=== PATIENT | male | born 1955 | race African-American/Black ===

== ENCOUNTER 2020-06-28 16:16 | Outpatient (REF) | payer OTHER, SELFPAY ==
[2020-06-28 16:20] LABS: MANUAL DIFF FLAG NO
[2020-06-28 16:22] LABS: Basophils Percent Auto 0.8 % (0-2); Eosinophils Absolute Auto 0.1 X10*3/uL (0.0-0.4); Eosinophils Percent Auto 1.5 % (0-4); Hematocrit 30.9 % (42-52); Hemoglobin 9.3 g/dl (14.0-18.0); Imm Gran Abs Auto 0.01 X10*3/uL (0.00-0.03); Imm Gran Pct Auto 0.2 % (0.0-0.4); Lymphocytes Absolute Auto 1.8 X10*3/uL (1.2-4.9); Lymphocytes Percent Auto 33.5 % (20-40); Mean Corpuscular HGB Conc 30.1 g/dl (31.0-36.0); Mean Corpuscular Hemoglobin 29.6 pg (27.0-33.0); Mean Corpuscular Volume 98.4 fL (80-98); Mean Platelet Volume 10.4 fL (9.4-12.4); Monocytes Absolute Auto 0.4 X10*3/uL (0.1-1.2); Monocytes Percent Auto 7.2 % (2-11); Neutrophils Percent Auto 56.8 % (45-73); Platelet Count 260 X10*3/uL (160-400); Red Blood Count 3.14 X10*6/uL (4.60-5.80); Red Cell Distribution Width 13.8 % (11.0-16.0); White Blood Count 5.3 X10*3/uL (4.8-10.8)
[2020-06-28 16:45] LABS: Alanine Aminotransferase 9 U/L (0-40); Albumin Level 3.6 g/dL (3.5-5.0); Alkaline Phosphatase 120 U/L (39-117); Anion Gap 13 (12-20); Aspartate Amino Transferase 11 U/L (5-37); Bilirubin Total 0.2 mg/dL (0.0-1.0); Blood Urea Nitrogen 26 mg/dL (9-16); Carbon Dioxide 22 mmol/L (22-29); Chloride 111 mmol/L (96-108); Estimated Glomerular Filt Rate 41; Glucose Random 92 mg/dL (60-115); Potassium 4.7 mmol/l (3.3-5.1); Sodium 141 mmol/L (135-145); Total Protein 6.3 g/dL (6.5-8.0)
== END 2020-06-28 16:17 | disposition home or self-care (01) ==
LOC: HO.LNP 16:16
PROVIDERS: Visit Provider Internal Medicine
DX: I10 Essential (primary) hypertension (principal)
CPT/HCPCS: 80053; 85025

== ENCOUNTER → 2020-07-11 11:44 | Outpatient (BNVA) | payer OTHER, SELFPAY | PROVIDERS: PCP Physician Assistant; Referring Provider Physician Assistant; Visit Provider Internal Medicine | DX: A49.1 Streptococcal infection, unspecified site (principal); R78.81 Bacteremia; E11.42 Type 2 diabetes mellitus with diabetic polyneuropathy; Z79.4 Long term (current) use of insulin | CPT/HCPCS: Q3014 ==

== ENCOUNTER 2020-07-12 12:30 | Outpatient (REF) | payer OTHER, SELFPAY ==
[2020-07-12 12:34] LABS: MANUAL DIFF FLAG NO
[2020-07-12 12:43] LABS: Basophils Percent Auto 0.6 % (0-2); Eosinophils Absolute Auto 0.1 X10*3/uL (0.0-0.4); Eosinophils Percent Auto 1.3 % (0-4); Hematocrit 31.1 % (42-52); Hemoglobin 9.6 g/dl (14.0-18.0); Imm Gran Abs Auto 0.02 X10*3/uL (0.00-0.03); Imm Gran Pct Auto 0.3 % (0.0-0.4); Lymphocytes Absolute Auto 1.5 X10*3/uL (1.2-4.9); Lymphocytes Percent Auto 22.1 % (20-40); Mean Corpuscular HGB Conc 30.9 g/dl (31.0-36.0); Mean Corpuscular Volume 97.2 fL (80-98); Monocytes Absolute Auto 0.5 X10*3/uL (0.1-1.2); Monocytes Percent Auto 7.3 % (2-11); Neutrophils Absolute Auto 4.6 X10*3/uL (2.0-8.3); Neutrophils Percent Auto 68.4 % (45-73); Platelet Count 343 X10*3/uL (160-400); Red Cell Distribution Width 14.2 % (11.0-16.0); White Blood Count 6.7 X10*3/uL (4.8-10.8)
[2020-07-12 13:04] LABS: Alanine Aminotransferase 12 U/L (0-40); Albumin Level 3.6 g/dL (3.5-5.0); Alkaline Phosphatase 129 U/L (39-117); Anion Gap 13 (12-20); Aspartate Amino Transferase 11 U/L (5-37); Bilirubin Total 0.3 mg/dL (0.0-1.0); Blood Urea Nitrogen 22 mg/dL (9-16); Calcium 8.2 mg/dL (8.4-10.2); Carbon Dioxide 22 mmol/L (22-29); Chloride 110 mmol/L (96-108); Estimated Glomerular Filt Rate 43; Glucose Random 108 mg/dL (60-115); Potassium 4.6 mmol/l (3.3-5.1); Sodium 140 mmol/L (135-145); Total Protein 6.5 g/dL (6.5-8.0)
== END 2020-07-12 12:31 | disposition home or self-care (01) ==
LOC: HO.LNP 12:30
PROVIDERS: Visit Provider Internal Medicine
DX: I10 Essential (primary) hypertension (principal)
CPT/HCPCS: 80053; 85025

== ENCOUNTER 2023-04-21 09:35 | Outpatient (AMB) | payer OTHER, SELFPAY ==
--- NOTE | 2023-04-21 09:38 | A.OFFPC_ITS ---
Vital Signs 04/21/23 09:40 Height 5 ft 6 in Weight 187 lb 4 oz BMI 30.2 BP 142/80 H Blood Pressure Location Lt brachial Position Sitting Respiration 17 Pulse 84 Pulse Source Pulse Oximeter Pulse Oximetry (%) 98 Oxygen Delivery Method Room Air Intake Visit Reasons: Physical exam Intake Note: Patient is here today for a physical. Pt requesting the [facility] disabled parking placard/Plate form. Quality Assurance Monitor Chassis Required: No Accompanied by: Spouse Allergies No Known Allergies [No Known Allergies*] Allergy (Verified 04/21/23 09:43) Medication List - Last Reconciled 04/21/23 by MARCIN Marinelli acetaminophen (Tylenol) 325 mg PO QID 30 days alprazolam 0.25 mg PO DAILY 10 days aspirin 81 mg PO DAILY atorvastatin 80 mg PO DAILY carvedilol 25 mg PO BID clonidine 1 patch topical QWEEK clopidogrel 75 mg PO DAILY cyanocobalamin (vitamin B-12) 1,000 mcg PO DAILY 90 days docusate sodium (Colace) 100 mg PO DAILY PRN insulin aspart U-100 (Novolog U-100 Insulin aspart) 12 units (0.12 mL) subcut BID 30 days insulin glargine (Lantus Solostar U-100 Insulin) 20 units (0.2 mL) subcut DAILY 30 days isosorbide mononitrate ER 60 mg PO BID nicardipine 40 mg (2 x 20 mg) PO TID omeprazole 40 mg PO DAILY pen needle, diabetic (BD Ultra-Fine Sharita Pen Needle) As directed polyethylene glycol 3350 grams PO sennosides (Senna Lax) 8.6 mg PO DAILY 30 days sitagliptin phosphate (Januvia) 50 mg PO DAILY trazodone 25 mg (1/2 x 50 mg) PO BEDTIME Tobacco use date assessed: 04/21/23 Fall risk assessment: No Falls in past year Last assessed Fall Risk: 04/21/23 Dental Screening Dental Screen Date: 04/21/23 Did you have a dental visit in the last 12 months?: Yes Did you have a dental problem in the last 6 months where you did not have access to dental care?: No Was dental information given to patient?: Yes HPI HPI Comments History of Present Illness Details 67-year-old male past medical history si gnificant for hypertension, type 2 diabetes mellitus, PVD, JONNA, GERD, insomnia, Bilateral feet all toes amputated. Patient presents today for physical exam. Patient Denies CP,sob,palpitations and syncope. Patient requesting [facility] handicap placard form completed, patient does not drive due to all toes of bilateral feet amputated and unable to walk long distances due to this. Patient ambulates with a cane/walker and occasionally requires using a wheelchair. Form completed office today to be scanned into patients chart. Eye exam: Recommended annually. Patient Colonoscopy: Referral entered to Gastroenterology. Tdap given in 2019, flu shot Labs ordered [facility] Medical History (Updated 04/21/23 @ 11:34 by MARCIN Marinelli) Amputation of one or more toes Social History Housing: House Alcohol intake: current Alcohol intake frequency: holidays/special occasions only Patient Tobacco Use Status: Current someday Tobacco user Tobacco use type: Cigar e-Cigarette/Vaping Use: Never Used Second Hand Smoke Exposure: No service: Yes ([employer]) Current occupational status: retired Cognitive needs: No Hearing needs: No Vision needs: No Questionnaire PHQ-9 Over the last 2 weeks, how often have you been bothered by any of the following problems? 1. Little interest or pleasure in doing things: not at all 2. Feeling down, depressed, or hopeless: not at all 3. Trouble falling or staying asleep, or sleeping too much: not at all 4. Feeling tired or having little energy: not at all 5. Poor appetite or overeating: not at all 6. Feeling bad about yourself - or that you are a failure or have let yourself or your family down: not at all 7. Trouble concentrating on things, such as reading the newspaper or watching television: not at all 8. Moving or speaking so slowly that other people could have noticed. Or the opposite - being so fidgety or restless that you have been moving around a lot more than usual: not at all 9. Thoughts that you would be better off or of hurting yourself in some way: not at all Total score: 0 Depression Screening Interpretation: Negative Depression Screening Done: Yes 51678 - PHQ-9 Billing: Yes Source: Developed by Drs. Zak No, Meggan Graff, Micha Umanzor and colleagues, with an educational dedra from [employer]. Thrive Questionnaire Date Thrive assessed: 04/21/23 I am a: Patient What is your living situation today?: I have a steady place to live Within the past 12 months, did the food you bought not last and you didn't have the money to get more?: Never true Within the past 12 months, did you worry whether your food would run out before you got money to buy more?: Never true Do you have trouble paying for medicines?: No Do you have trouble getting transportation to medical appointments?: No Do you have trouble paying your heating and electricity bill?: No Do you have trouble taking care of your child, family member or friend?: No Do you have trouble with day-to-day activities such as bathing, preparing meals, shopping, managing finances, etc.?: No Are you currently unemployed and looking for a job?: No Are you interested in more education?: No Please select the resources that you would like help with: None Currently or been in a relationship where the following occur: no concerns reported JONNA-7 AMB Questionnaire JONNA-7 Date JONNA - 7 assessed: 04/21/23 Feeling nervous, anxious, or on edge: 0 = Not at all Not being able to stop or control worryin = Not at all Worrying too much about different things: 0 = Not at all Trouble relaxin = Not at all Being so restless that it is hard to sit still: 0 = Not at all Becoming easily annoyed or irritable: 0 = Not at all Feeling afraid as if something awful might happen: 0 = Not at all Total JONNA-7 score (0-4 normal; 5-9 mild; 10-14 moderate; 15-21 severe): 0 Source: Developed by Drs. Zak No, Meggan Graff, Micha Umanzor and colleagues, with an educational dedra from [employer]. JONNA-7 Assessment Billing JONNA-7 Assessment Tool: JONNA-7 Assessment 54611 Review of Systems Const Denies chills, Denies fatigue, Denies fever(s) and Denies poor appetite Eyes Denies no additional complaints ENT Reports Normal hearing present Card Denies chest pain, Denies syncope, Denies rapid heart rate and Denies dyspnea Resp Denies cough and Denies dyspnea GI Denies change in stool character, Denies constipation, Denies diarrhea, Denies nausea and Denies vomiting Denies dysuria, Denies urinary frequency and Denies urinary urgency Neuro Reports Normal hearing present, Denies confusion and Denies syncope Psych Denies confusion Endo Denies fatigue Physical exam (Primary Care) Vital Signs: Last Vital Signs Pulse 84 04/21/23 09:40 Resp 17 04/21/23 09:40 BP 142/80 H 04/21/23 09:40 Pulse Ox 98 04/21/23 09:40 Oxygen Delivery Method Room Air 04/21/23 09:40 BMI result Body Mass Index 30.2 Tobacco/Smoking Status: Tobacco use Status Tobacco use date assessed 04/21/23 04/21/23 09:47 Patient Tobacco Use Status Current someday Tobacco 04/21/23 09:47 Tobacco use type Cigar 04/21/23 09:47 e-Cigarette/Vaping Use Never Used 04/21/23 09:47 PHQ-9: PHQ-9 Score PHQ-9: Total score 0 04/21/23 11:37 Depression Screening Interpretation: Negative Thrive Assessment: Date of Thrive Assessment Date Thrive assessed 04/21/23 04/21/23 09:47 Currently or been in a relationship where the following occur: no concerns reported Const General: No confusion Orientation/consciousness: No confusion HENMT Head: Yes normocephalic and Yes atraumatic Ears: external ears normal and TM's normal bilaterally General nose exam: Normal external nose present and Normal nasal mucous membranes and turbinates present Face and sinus: Yes normal facial exam and Yes sinuses nontender Mouth: moist mucous membranes Throat: Yes tonsils normal Eyes Conjunctivae: conjunctivae normal Sclerae: sclerae normal Pupils: Equal, round and reactive pupils present and Pupils normal by confrontation EOM: EOMs intact bilaterally Direct Ophthalmoscopy: normal light reflex Neck Neck: Yes no lymphadenopathy and Yes supple Thyroid: Thyroid normal Chest Chest palpation & inspection: normal inspection of the chest Resp Effort & Inspection: normal respiratory effort Auscultation: clear to auscultation bilaterally, no crackles, no rhonchi and no wheezes Cardio Rate: regular rate Rhythm: regular rhythm Peripheral pulses: radial pulses present and dorsalis pedis present GI Inspection: Yes normal to inspection Palpation (GI): Soft to palpation, nontender and No hepatosplenomegaly present Auscultation: normoactive bowel sounds Skin General skin exam: no rashes or lesions noted Neuro General: No confusion Cranial nerves: Yes Equal, round and reactive pupils present and Yes Normal hearing present Cognition (Neuro): normal cognition Gait exam (Neuro): Normal gait present Motor exam (neuro): 5/5 motor strength present throughout Deep tendon reflexes (DTR's): Right brachioradialis reflex intensity grade: 2+, Left brachioradialis reflex intensity grade: 2+, Right patellar reflex intensity grade: 2+ and Left patellar reflex intensity grade: 2+ Extrem General: No edema Office Procedures Flu Questionnaire Does the patient have a severe egg allergy?: No Does the patient have severe life threatening allergies?: No Does the patient have a fever or illness today?: No Has the patient ever had Guillain-[place] Syndrome?: No Has the patient ever had any past reaction to a flu shot?: No Results AMB Hemoglobin A1c AMB Hemoglobin A1c 7.1 % Last Edit by GARO Aponte on 04/21/23 10:07 Immunizations flu vacc [id number] 6mos up(PF) 60 mcg(15 mcgx4)/0.5 mL IM syringe Performing Provider: MARCIN Marinelli [facility] Administered by: GARO Aponte on 04/21/23 10:07 Dose Route Admin Location Dispensed Lot Number Expiration Date NDC Gin Clerk 0.5 mL IM Right Deltoid 0.5 mL [id number] 12/27/23 [id number] [place] VIS Given Date VIS Provided VIS Publication Date 04/21/23 Single Vaccine 21 Eligibility Eligibility Date Funding Source Not [facility] Eligible 04/21/23 Private Results Reviewed Results Reviewed: Laboratory Last Values Hgb A1c (Clinic) 7.1 % (4.0-6.0) H 04/21/23 09:48 Assessment and Plan Assessment & Plan (1) Physical exam, annual: Code(s): Z00.00 - Encounter for general adult medical examination without abnormal findings Plan: Follow-up in 1 year for annual exam. (2) DMII (diabetes mellitus, type 2): Code(s): E11.9 - Type 2 diabetes mellitus without complications Qualifiers: Diabetes mellitus complication detail: with polyneuropathy Diabetes mellitus complication status: with neurologic complications Diabetes mellitus computer terminal operator insulin use: with custodial use Qualified Code(s): E11.42 - Type 2 diabetes mellitus with diabetic polyneuropathy; Z79.4 - detention (current) use of insulin Plan: Continue on NovoLog, Lantus and Januvia. Hemoglobin A1c 7.0% Patient educated to decrease the amount of carbohydrate intake such as pasta, bread, rice and potatoes are all sugar in addition to the sweet stuff. Remember that fruits are good but they also have sugar.Hemoglobin A1c goal of less than 7.0%. (3) HTN (hypertension): Code(s): I10 - Essential (primary) hypertension Qualifiers: Hypertension type: essential hypertension Qualified Code(s): I10 - Essential (primary) hypertension Plan: Blood pressure elevated at 142/80 Continue on current medications. Blood pressure goal less than 140/90 follow low-salt diet. (4) GERD (gastroesophageal reflux disease): Code(s): K21.9 - Gastro-esophageal reflux disease without esophagitis Plan: Continue on omeprazole Avoid the foods that cause that, usually spicy foods, tomato products, juices, coffee, soda and foods that you're sensitive to.? After eating do not lie down, allow 3-4 hours before lying down. And keep the head of the bed above 30 degrees to avoid the acid from going up. Plan Follow-up in 3 months. Orders: Orders AMB Hemoglobin A1c Today E11.9 - Type 2 diabetes mellitus without complications Comprehensive [place]. Panel Fast Today E11.9 - Type 2 diabetes mellitus without complications, I10 - Essential (primary) hypertension Lipid Panel Today Z13.220 - Encounter for screening for lipoid disorders TSH reflex Free T4 Today Z13.29 - Encounter for screening for other suspected endocrine disorder Prostate Specific Antigen Scr Today Z12.5 - Encounter for screening for malignant neoplasm of prostate Influenza [id number] Immunization Today Z23 - Encounter for immunization Complete Blood Count Auto Diff Today Z13.0 - Encounter for screening for diseases of the blood and blood-forming organs and certain disorders involving the immune mechanism Referrals Gastroenterology Referral Z12.11 - Encounter for screening for malignant neoplasm of colon Medications: Refilled insulin aspart U-100 (Novolog U-100 Insulin aspart) 12 units (0.12 mL) subcut BID 7.2 mL 3RF 30 days E11.42 - Type 2 diabetes mellitus with diabetic polyneuropathy, Z79.4 - computer terminal operator (current) use of insulin omeprazole 40 mg PO DAILY 90 caps 3RF K21.9 - Gastro-esophageal reflux disease without esophagitis sitagliptin phosphate (Januvia) 50 mg PO DAILY 90 tabs 1RF acetaminophen (Tylenol) 325 mg PO QID 120 tabs 1RF pain 30 days insulin glargine (Lantus Solostar U-100 Insulin) 20 units (0.2 mL) subcut DAILY 15 mL 3RF 30 days E11.42 - Type 2 diabetes mellitus with diabetic polyneuropathy, Z79.4 - detention (current) use of insulin Coding Level of Care Code Est Pt Prev Care >65y(77800) Diagnoses Physical exam, annual Z00.00 Type 2 diabetes mellitus with diabetic polyneuropathy, with long-term current use of insulin E11.42; Z79.4 Diabetes mellitus complication detail: with polyneuropathy Diabetes mellitus complication status: with neurologic complications Diabetes mellitus computer terminal operator insulin use: with custodial use Essential hypertension I10 Hypertension type: essential hypertension GERD (gastroesophageal reflux disease) K21.9 Additional Codes JONNA-7 Assessment Billing - JONNA-7 Assessment Tool: JONNA-7 Assessment [id number] ([id number])
[2023-04-21 09:40] VITALS: BP 142/80; PULSE 84; RESP 17; O2SAT 98; BMI 30.2
== END 2023-04-21 10:21 | disposition home or self-care (01) ==
PROVIDERS: PCP Physician Assistant; Visit Provider Nurse Practitioner Family
DX: Z00.00 Encounter for general adult medical examination without abnormal findings (principal); E11.42 Type 2 diabetes mellitus with diabetic polyneuropathy; Z79.4 Long term (current) use of insulin; I10 Essential (primary) hypertension; Z23 Encounter for immunization; K21.9 Gastro-esophageal reflux disease without esophagitis
CPT/HCPCS: 83036; 90471; 90686; 99397

== ENCOUNTER 2023-12-02 14:20 | Outpatient (AMB) | payer OTHER, SELFPAY ==
[2023-12-02 14:24] VITALS: BP 110/70; PULSE 87; O2SAT 98; BMI 28.9
--- NOTE | 2023-12-02 14:24 | A.OFFPC_ITS ---
Vital Signs 12/02/23 14:24 Height 5 ft 6 in Weight 179 lb BMI 28.9 BP 110/70 Blood Pressure Location Lt brachial Position Sitting Pulse 87 Pulse Source Pulse Oximeter Pulse Oximetry (%) 98 Oxygen Delivery Method Room Air Intake Visit Reasons: DM, HTN Boiling Tub Operator Required: No Accompanied by: Self / Same As Patient Allergies No Known Allergies [No Known Allergies*] Allergy (Verified 12/02/23 14:40) Medication List - Last Reconciled 12/02/23 by Reynaldo Freed PA-C acetaminophen (Tylenol) 325 mg PO QID 30 days alprazolam 0.25 mg PO DAILY 5 days aspirin 81 mg PO DAILY atorvastatin 80 mg PO DAILY carvedilol 25 mg PO BID clonidine 1 patch topical QWEEK clopidogrel 75 mg PO DAILY cyanocobalamin (vitamin B-12) 1,000 mcg PO DAILY 90 days docusate sodium (Colace) 100 mg PO DAILY 90 days insulin aspart U-100 (Novolog PenFill U-100 Insulin aspart) 12 units (0.12 mL) subcut BID 30 days insulin glargine (Lantus Solostar U-100 Insulin) 20 units (0.2 mL) subcut DAILY 30 days isosorbide mononitrate ER 60 mg PO BID nicardipine 40 mg (2 x 20 mg) PO TID 90 days omeprazole 40 mg PO DAILY pen needle, diabetic (BD Ultra-Fine Sharita Pen Needle) As directed polyethylene glycol 3350 grams PO sennosides (Senna Lax) 8.6 mg PO DAILY 30 days sitagliptin phosphate (Januvia) 50 mg PO DAILY trazodone 25 mg (1/2 x 50 mg) PO BEDTIME Tobacco use date assessed: 12/02/23 Fall risk assessment: No Falls in past year Last assessed Fall Risk: 12/02/23 Dental Screening Dental Screen Date: 12/02/23 Did you have a dental visit in the last 12 months?: Yes Did you have a dental problem in the last 6 months where you did not have access to dental care?: No Was dental information given to patient?: Patient has dentist HPI DM, HTN HPI Details Patient is a 68-year-old male here today for follow-up visit? Patient has a past medical history significant for generalized anxiety disorder, type 2 diabetes, hyperlipidemia, CKD stage 3, CAD with stent placement in 2019, uncontrolled hypertension. . CKD stage 3/ HTN: He is followed by a equalizing saw operator, Has started too take his Cardene 6x per day. He report his blood pressure been running 120s sytolic at home. .. DMII: Patient's type 2 diabetes. Today's A1c is 7.1. Patient continues on insulin and Januvia therapy. He does report checking his blood sugars and reports ranging from 80-130. . CAD: has a coronary artery stent placed in the LAD in August of 2018. Has not had much cardiac followup. Apparently has been dual antiplatelet therapies since 2019. Would like to establish care with cork insulation setter. Laboratory Tests 04/21/23 12/02/23 09:48 14:40 Hgb A1c (Clinic) 7.1 H 7.1 H PFSH Medical History Amputation of one or more toes Social History Housing: House Alcohol intake: current Alcohol intake frequency: holidays/special occasions only Patient Tobacco Use Status: Current someday Tobacco user Tobacco use type: Cigar e-Cigarette/Vaping Use: Never Used Second Hand Smoke Exposure: No service: Yes ([employer]) Current occupational status: retired Cognitive needs: No Hearing needs: No Vision needs: No Questionnaire PHQ-9 Over the last 2 weeks, how often have you been bothered by any of the following problems? 1. Little interest or pleasure in doing things: not at all 2. Feeling down, depressed, or hopeless: not at all 3. Trouble falling or staying asleep, or sleeping too much: not at all 4. Feeling tired or having little energy: not at all 5. Poor appetite or overeating: not at all 6. Feeling bad about yourself - or that you are a failure or have let yourself or your family down: not at all 7. Trouble concentrating on things, such as reading the newspaper or watching television: not at all 8. Moving or speaking so slowly that other people could have noticed. Or the opposite - being so fidgety or restless that you have been moving around a lot more than usual: not at all 9. Thoughts that you would be better off or of hurting yourself in some way: not at all Total score: 0 Depression Screening Interpretation: Negative Depression Screening Done: Yes 02760 - PHQ-9 Billing: Yes Source: Developed by Drs. Zak No, Meggan Graff, Micha Umanzor and colleagues, with an educational dedra from [employer]. Thrive Questionnaire Date Thrive assessed: 12/02/23 I am a: Patient What is your living situation today?: I have a steady place to live Within the past 12 months, did the food you bought not last and you didn't have the money to get more?: Never true Within the past 12 months, did you worry whether your food would run out before you got money to buy more?: Never true Do you have trouble paying for medicines?: No Do you have trouble getting transportation to medical appointments?: No Do you have trouble paying your heating and electricity bill?: No Do you have trouble taking care of your child, family member or friend?: No Do you have trouble with day-to-day activities such as bathing, preparing meals, shopping, managing finances, etc.?: No Are you currently unemployed and looking for a job?: No Are you interested in more education?: No Please select the resources that you would like help with: None Currently or been in a relationship where the following occur: no concerns reported THRIVE Score: 0 AUDIT C Alcohol Use Questionnaire (AUDIT-C) 1. How often do you have a drink containing alcohol?: 2-3 times a week 2. How many drinks containing alcohol do you have on a typical day when you are drinking?: 1 or 2 3. How often do you have six or more drinks on one occasion?: Never Total Score: 3 JONNA-7 AMB Questionnaire JONNA-7 Date JONNA - 7 assessed: 12/02/23 Feeling nervous, anxious, or on edge: 0 = Not at all Not being able to stop or control worryin = Not at all Worrying too much about different things: 0 = Not at all Trouble relaxin = Not at all Being so restless that it is hard to sit still: 0 = Not at all Becoming easily annoyed or irritable: 0 = Not at all Feeling afraid as if something awful might happen: 0 = Not at all Total JONNA-7 score (0-4 normal; 5-9 mild; 10-14 moderate; 15-21 severe): 0 Source: Developed by Drs. Zak No, Meggan Graff, Micha Umanzor and colleagues, with an educational dedra from [employer]. JONNA-7 Assessment Billing JONNA-7 Assessment Tool: JONNA-7 Assessment 19815 Review of Systems Const Denies headache(s) Eyes Denies loss of vision ENT Denies vertigo, Denies dizziness, Denies headache(s) and Denies sore throat Card Denies chest pain, Denies leg edema and Denies lightheadedness Resp Denies cough, Denies hemoptysis and Denies wheezing GI Denies abdominal pain, Denies melena, Denies constipation, Denies diarrhea and Denies vomiting Denies dysuria, Denies urinary frequency and Denies urinary urgency Musc Denies arthralgias, Denies joint swelling, Denies numbness and Denies tingling Neuro Denies Abnormal speech present, Denies behavioral changes, Denies vertigo, Denies dizziness, Denies headache(s), Denies loss of vision, Denies memory loss, Denies numbness and Denies tingling Psych Denies anxiety, Denies behavioral changes, Denies depression, Denies memory loss and Denies panic attacks Epifanio/Lymph Denies easy bleeding and Denies easy bruising Aller/Immun Denies wheezing Physical exam (Primary Care) Vital Signs: Last Vital Signs Pulse 87 12/02/23 14:24 BP 110/70 12/02/23 14:24 Pulse Ox 98 12/02/23 14:24 Oxygen Delivery Method Room Air 12/02/23 14:24 BMI result Body Mass Index 28.9 Tobacco/Smoking Status: Tobacco use Status Tobacco use date assessed 12/02/23 12/02/23 14:27 Patient Tobacco Use Status Current someday Tobacco 12/02/23 14:38 Tobacco use type Cigar 12/02/23 14:27 e-Cigarette/Vaping Use Never Used 12/02/23 14:27 PHQ-9: PHQ-9 Score PHQ-9: Total score 0 12/02/23 14:41 Depression Screening Interpretation: Negative Thrive Assessment: Date of Thrive Assessment Date Thrive assessed 12/02/23 12/02/23 14:27 Currently or been in a relationship where the following occur: no concerns reported Const General: healthy appearing, no acute distress, alert and awake Nutritional Appearance: well nourished Orientation/consciousness: oriented to person, oriented to place and oriented to time HENMT Ears: TM's normal bilaterally General nose exam: Normal nasal mucous membranes and turbinates present Eyes Conjunctivae: conjunctivae normal Sclerae: sclerae normal Pupils: Equal, round and reactive pupils present Neck Neck: Yes no lymphadenopathy and Yes no JVD Thyroid: Thyroid normal Carotids: no bruits Resp Effort & Inspection: normal respiratory effort and not tachypneic Auscultation: no crackles, no rales, no rhonchi and no wheezes Cardio Rate: regular rate Rhythm: regular rhythm Heart sounds: no murmurs and normal S1 and S2 GI Palpation (GI): Soft to palpation, nontender, no hepatomegaly and no splenomegaly Auscultation: normal bowel sounds Skin General skin exam: no rashes or lesions noted and dry skin Neuro General: oriented to person, oriented to place and oriented to time Cranial nerves: Yes Equal, round and reactive pupils present Speech: No Abnormal speech present Gait exam (Neuro): Normal gait present Motor exam (neuro): no tremor noted Extrem Right upper extremity: full ROM Left upper extremity: full ROM Right lower extremity: full ROM; no edema Left lower extremity: full ROM; no edema Psych Mental Status: mental status grossly normal Speech and movement: Normal speech and movement present Affect: normal affect Attitude: cooperative Thought process: Normal thought process present Results AMB Hemoglobin A1c AMB Hemoglobin A1c 7.1 % Last Edit by GARO Aponte on 12/02/23 14:40 Results Reviewed Results Reviewed: Laboratory Last Values Hgb A1c (Clinic) 7.1 % (4.0-6.0) H 12/02/23 14:40 Assessment and Plan Assessment & Plan (1) DMII (diabetes mellitus, type 2): Code(s): E11.9 - Type 2 diabetes mellitus without complications Qualifiers: Diabetes mellitus complication detail: with polyneuropathy Diabetes mellitus complication status: with neurologic complications Diabetes mellitus correction insulin use: with correction use Qualified Code(s): E11.42 - Type 2 diabetes mellitus with diabetic polyneuropathy; Z79.4 - exterminator termite (current) use of insulin Plan: Patient's type 2 diabetes is suboptimally controlled with A1c is 7.1. Continue on NovoLog, Lantus and Januvia. He will work extensively on dietary diet to reduce his A1c. Patient educated to decrease the amount of carbohydrate intake such as pasta, bread, rice and potatoes are all sugar in addition to the sweet stuff. Remember that fruits are good but they also have sugar.Hemoglobin A1c goal of less than 7.0%. (2) HTN (hypertension): Code(s): I10 - Essential (primary) hypertension Qualifiers: Hypertension type: essential hypertension Qualified Code(s): I10 - Essential (primary) hypertension Plan: Blood pressure acceptable today in office. Will continue his current dose of antihypertensive medication with goal blood pressure to be below 140/90 (3) GERD (gastroesophageal reflux disease): Code(s): K21.9 - Gastro-esophageal reflux disease without esophagitis Qualifiers: Esophagitis presence: without esophagitis Qualified Code(s): K21.9 - Gastro-esophageal reflux disease without esophagitis Plan: Continue on omeprazole Has not had any breakthrough GERD symptoms. (4) CAD (coronary artery disease): Code(s): I25.10 - Atherosclerotic heart disease of [place] coronary artery without angina pectoris Qualifiers: Associated angina: without angina Coronary Disease-Associated Artery/Lesion type: [place] artery [place] vs. transplanted heart: [place] heart Qualified Code(s): I25.10 - Atherosclerotic heart disease of [place] coronary artery without angina pectoris Plan: He does report having 1 coronary artery stent placed in his LAD in August of 2018. Apparently has not had much Cardiology follow-up. Will refer to [facility] to establish care. Seems to have been on dual antiplatelet therapy since 2021. Advised on discontinuing Plavix and continuing aspirin 81 mg inde finitely . Goal LDL would optimally be below 70. (5) Colon cancer screening: Code(s): Z12.11 - Encounter for screening for malignant neoplasm of colon Plan: Willing to do Cologuard (6) CKD (chronic kidney disease) stage 3, GFR 30-59 ml/min: Code(s): N18.30 - Chronic kidney disease, stage 3 unspecified Qualifiers: Chronic kidney disease stage 3 subtype: unspecified whether 3a or 3b Qualified Code(s): N18.30 - Chronic kidney disease, stage 3 unspecified Plan: Patient followed by Nephrology. Blood pressures have been stable on calcium channel elsie, carvedilol, isosorbide clonidine. Creatinine seem to be 1.6-1.8 (7) Vitreous hemorrhage: Code(s): H43.10 - Vitreous hemorrhage, unspecified eye Qualifiers: Laterality: right Qualified Code(s): H43.11 - Vitreous hemorrhage, right eye Plan: Has visual impairment. Will continue manage comorbidities to try to control blood pressure and type 2 diabetes. Followed by ophthalmology annually. (8) PVD (peripheral vascular disease): Code(s): I73.9 - Peripheral vascular disease, unspecified Plan: Has had toe amputations in the past due to diabetes and peripheral artery disease. Plan Follow-up in 3 months. Orders: Orders AMB Hemoglobin A1c 12/02/23 E11.42 - Type 2 diabetes mellitus with diabetic polyneuropathy, Z79.4 - MCC (current) use of insulin Microalbumin, Random (w Creat) 12/02/23 E11.42 - Type 2 diabetes mellitus with diabetic polyneuropathy, Z79.4 - exterminator termite (current) use of insulin Prostate Specific Antigen Scr 12/02/23 E11.42 - Type 2 diabetes mellitus with diabetic polyneuropathy, Z12.5 - Encounter for screening for malignant neoplasm of prostate, Z79.4 - exterminator termite (current) use of insulin Lipid Panel 12/02/23 I25.10 - Atherosclerotic heart disease of [place] coronary artery without angina pectoris Comprehensive [place]. Panel Fast 12/02/23 I25.10 - Atherosclerotic heart disease of [place] coronary artery without angina pectoris Complete Blood Count no Diff 12/02/23 I25.10 - Atherosclerotic heart disease of [place] coronary artery without angina pectoris Referrals Cologuard Test Z12.11 - Encounter for screening for malignant neoplasm of colon Cardiology Referral I25.10 - Atherosclerotic heart disease of [place] coronary artery without angina pectoris Medications: Refilled docusate sodium (Colace) 100 mg PO DAILY 90 days 90 caps 3RF constipation docusate sodium (Colace) 100 mg PO DAILY 90 days 90 caps 3RF constipation Z12.11 - Encounter for screening for malignant neoplasm of colon Discontinued clopidogrel Discontinued Reason: Doctor's Order 75 mg PO DAILY 90 tabs 1RF Patient Instructions: Goal: Blood pressure to remain below 140/90, A1c to re below 7.0 Barriers: Adherence to physical activity and healthy eating habits Coding Level of Care Code Est Pt Level 4 (64128) Complex EM visit Add On G2211 Diagnoses Type 2 diabetes mellitus with diabetic polyneuropathy, with long-term current use of insulin E11.42; Z79.4 Diabetes mellitus complication detail: with polyneuropathy Diabetes mellitus complication status: with neurologic complications Diabetes mellitus exterminator termite insulin use: with exterminator termite use Essential hypertension I10 Hypertension type: essential hypertension Gastroesophageal reflux disease without esophagitis K21.9 Esophagitis presence: without esophagitis Coronary artery disease involving [place] coronary artery of [place] heart without angina pectoris I25.10 Associated angina: without angina Coronary Disease-Associated Artery/Lesion type: [place] artery [place] vs. transplanted heart: [place] heart Colon cancer screening Z12.11 Stage 3 chronic kidney disease, unspecified whether stage 3a or 3b CKD N18.30 Chronic kidney disease stage 3 subtype: unspecified whether 3a or 3b Vitreous hemorrhage of right eye H43.11 Laterality: right PVD (peripheral vascular disease) I73.9 Additional Codes JONNA-7 Assessment Billing - JONNA-7 Assessment Tool: JONNA-7 Assessment [id number] ([id number])
== END 2023-12-02 15:04 | disposition home or self-care (01) ==
PROVIDERS: PCP Physician Assistant; Visit Provider Physician Assistant
DX: E11.42 Type 2 diabetes mellitus with diabetic polyneuropathy (principal); Z79.4 Long term (current) use of insulin
CPT/HCPCS: 83036; 99214; G2211

== ENCOUNTER 2024-03-23 15:00 | Outpatient (AMB) | payer OTHER, SELFPAY ==
--- NOTE | 2024-03-23 15:17 | MHC.PC.OV ---
Vital Signs 03/23/24 15:18 Height 5 ft 6 in Weight 185 lb BMI 29.9 BP 128/80 Blood Pressure Location Lt brachial Position Sitting Pulse 90 Pulse Source Pulse Oximeter Pulse Oximetry (%) 6 L Oxygen Delivery Method Room Air Intake Visit Reasons: DMII/ CAD/ HLD Allergies No Known Allergies [No Known Allergies*] Allergy (Verified 03/23/24 15:29) Medication List - Last Reconciled 03/23/24 by Reynadlo Freed PA-C acetaminophen (Tylenol) 325 mg PO QID 30 days alprazolam 0.25 mg PO DAILY 5 days aspirin 81 mg PO DAILY atorvastatin 80 mg PO DAILY carvedilol 25 mg PO BID clonidine 1 patch topical QWEEK cyanocobalamin (vitamin B-12) 1,000 mcg PO DAILY 90 days docusate sodium (Colace) 100 mg PO DAILY 90 days insulin aspart U-100 (Novolog PenFill U-100 Insulin aspart) 12 units (0.12 mL) subcut BID 30 days insulin glargine (Lantus Solostar U-100 Insulin) 20 units (0.2 mL) subcut DAILY 30 days isosorbide mononitrate ER 60 mg PO BID nicardipine 40 mg (2 x 20 mg) PO TID 90 days omeprazole 40 mg PO DAILY pen needle, diabetic (BD Ultra-Fine Sharita Pen Needle) As directed polyethylene glycol 3350 grams PO sennosides (Senna Lax) 8.6 mg PO DAILY 30 days sitagliptin phosphate (Januvia) 50 mg PO DAILY trazodone 25 mg (1/2 x 50 mg) PO BEDTIME Tobacco use date assessed: 12/02/23 Dental Screening Dental Screen Date: 12/02/23 HPI DMII/ CAD/ HLD HPI Details Patient is a 68-year-old male here today for follow-up visit? Patient has a past medical history significant for generalized anxiety disorder, type 2 diabetes, hyperlipidemia, CKD stage 3, CAD with stent placement in 2019, uncontrolled hypertension. Patient recently hospitalized for COVID and was found to be dehydrated. Currently feeling much better. . CKD stage 3/ HTN: He is followed by a gun mechanic, Has started too take his Cardene 6x per day. He report his blood pressure been running 120s sytolic at home. .. DMII: Patient's type 2 diabetes well controlled and A1c today acceptable.. . Patient continues on insulin and Januvia therapy. He does report checking his blood sugars and reports ranging from 80-130. . CAD: has a coronary artery stent placed in the LAD in August of 2018. Has not had much cardiac followup. Apparently has been dual antiplatelet therapies since 2019. He has been called by Cardiology here in [place] though has not been able to make an appointment. [facility] Medical History Amputation of one or more toes Social History Housing: House Alcohol intake: current Alcohol intake frequency: holidays/special occasions only Patient Tobacco Use Status: Current someday Tobacco user Tobacco use type: Cigar e-Cigarette/Vaping Use: Never Used Second Hand Smoke Exposure: No service: Yes ([employer]) Current occupational status: retired Cognitive needs: No Hearing needs: No Vision needs: No Questionnaire Thrive Questionnaire Date Thrive assessed: 12/02/23 JONNA-7 AMB Questionnaire JONNA-7 Date JONNA - 7 assessed: 12/02/23 Source: Developed by Drs. Zak No, Meggan Graff, Micha Umanzor and colleagues, with an educational dedra from [employer]. Review of Systems Const Denies headache(s) Eyes Denies loss of vision ENT Denies vertigo, Denies dizziness, Denies headache(s) and Denies sore throat Card Denies chest pain, Denies leg edema and Denies lightheadedness Resp Denies cough, Denies hemoptysis and Denies wheezing GI Denies abdominal pain, Denies melena, Denies constipation, Denies diarrhea and Denies vomiting Denies dysuria, Denies urinary frequency and Denies urinary urgency Musc Denies arthralgias, Denies joint swelling, Denies numbness and Denies tingling Neuro Denies Abnormal speech present, Denies behavioral changes, Denies vertigo, Denies dizziness, Denies headache(s), Denies loss of vision, Denies memory loss, Denies numbness and Denies tingling Psych Denies anxiety, Denies behavioral changes, Denies depression, Denies memory loss and Denies panic attacks Epifanio/Lymph Denies easy bleeding and Denies easy bruising Aller/Immun Denies wheezing Physical exam (Primary Care) Vital Signs: Last Vital Signs Pulse 90 03/23/24 15:18 BP 128/80 03/23/24 15:18 Pulse Ox 6 L 03/23/24 15:18 Oxygen Delivery Method Room Air 03/23/24 15:18 BMI result Body Mass Index 29.9 Tobacco/Smoking Status: Tobacco use Status Tobacco use date assessed 12/02/23 03/23/24 15:19 Patient Tobacco Use Status Current someday Tobacco 03/23/24 15:19 Tobacco use type Cigar 03/23/24 15:19 e-Cigarette/Vaping Use Never Used 03/23/24 15:19 Thrive Assessment: Date of Thrive Assessment Date Thrive assessed 12/02/23 03/23/24 15:19 Const General: healthy appearing, no acute distress, alert and awake Nutritional Appearance: well nourished Orientation/consciousness: oriented to person, oriented to place and oriented to time HENMT Ears: TM's normal bilaterally General nose exam: Normal nasal mucous membranes and turbinates present Eyes Conjunctivae: conjunctivae normal Sclerae: sclerae normal Pupils: Equal, round and reactive pupils present Neck Neck: Yes no lymphadenopathy and Yes no JVD Thyroid: Thyroid normal Carotids: no bruits Resp Effort & Inspection: normal respiratory effort and not tachypneic Auscultation: no crackles, no rales, no rhonchi and no wheezes Cardio Rate: regular rate Rhythm: regular rhythm Heart sounds: no murmurs and normal S1 and S2 GI Palpation (GI): Soft to palpation, nontender, no hepatomegaly and no splenomegaly Auscultation: normal bowel sounds Skin General skin exam: no rashes or lesions noted and dry skin Neuro General: oriented to person, oriented to place and oriented to time Cranial nerves: Yes Equal, round and reactive pupils present Speech: No Abnormal speech present Gait exam (Neuro): Normal gait present Motor exam (neuro): no tremor noted Extrem Right upper extremity: full ROM Left upper extremity: full ROM Right lower extremity: full ROM; no edema Left lower extremity: full ROM; no edema Psych Mental Status: mental status grossly normal Speech and movement: Normal speech and movement present Affect: normal affect Attitude: cooperative Thought process: Normal thought process present Assessment and Plan Assessment & Plan (1) DMII (diabetes mellitus, type 2): Code(s): E11.9 - Type 2 diabetes mellitus without complications Qualifiers: Diabetes mellitus complication detail: with polyneuropathy Diabetes mellitus complication status: with neurologic complications Diabetes mellitus penitentiary insulin use: with penitentiary use Qualified Code(s): E11.42 - Type 2 diabetes mellitus with diabetic polyneuropathy; 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 Continue on NovoLog, Lantus and Januvia. He will work extensively on dietary diet to reduce his A1c. Patient educated to decrease the amount of carbohydrate intake such as pasta, bread, rice and potatoes are all sugar in addition to the sweet stuff. Remember that fruits are good but they also have sugar.Hemoglobin A1c goal of less than 7.0%. (2) HTN (hypertension): Code(s): I10 - Essential (primary) hypertension Qualifiers: Hypertension type: essential hypertension Qualified Code(s): I10 - Essential (primary) hypertension Plan: Blood pressure acceptable today in office. Will continue his current dose of antihypertensive medication with goal blood pressure to be below 140/90 (3) GERD (gastroesophageal reflux disease): Code(s): K21.9 - Gastro-esophageal reflux disease without esophagitis Qualifiers: Esophagitis presence: without esophagitis Qualified Code(s): K21.9 - Gastro-esophageal reflux disease without esophagitis Plan: Continue on omeprazole Has not had any breakthrough GERD symptoms. (4) CAD (coronary artery disease): Code(s): I25.10 - Atherosclerotic heart disease of [place] coronary artery without angina pectoris Qualifiers: Associated angina: without angina Coronary Disease-Associated Artery/Lesion type: [place] artery [place] vs. transplanted heart: [place] heart Qualified Code(s): I25.10 - Atherosclerotic heart disease of [place] coronary artery without angina pectoris Plan: He does report having 1 coronary artery stent placed in his LAD in August of 2018. He would like to reestablish care with a sorting cows worker. Seems to have been on dual antiplatelet therapy since 2021. Advised on discontinuing Plavix and continuing aspirin 81 mg indefinitely . Goal LDL would optimally be below 70. (5) CKD (chronic kidney disease) stage 3, GFR 30-59 ml/min: Code(s): N18.30 - Chronic kidney disease, stage 3 unspecified Qualifiers: Chronic kidney disease stage 3 subtype: unspecified whether 3a or 3b Qualified Code(s): N18.30 - Chronic kidney disease, stage 3 unspecified Plan: Patient followed by Nephrology. Blood pressures have been stable on calcium channel elsie, carvedilol, isosorbide clonidine. Creatinine seem to be 1.6-1.8 Plan Follow-up in 3 months. Orders: Referrals Ophthalmology Referral H43.11 - Vitreous hemorrhage, right eye Patient Instructions: Goal: Blood pressure to remain below 140/90 LDL to be optimally below 70 Barriers: Adherence to physical activity and healthy eating habits Coding Level of Care Code Est Pt Level 4 (91332) Diagnoses Type 2 diabetes mellitus with diabetic polyneuropathy, with long-term current use of insulin E11.42; Z79.4 Diabetes mellitus complication detail: with polyneuropathy Diabetes mellitus complication status: with neurologic complications Diabetes mellitus penitentiary insulin use: with charter pilot use Essential hypertension I10 Hypertension type: essential hypertension Gastroesophageal reflux disease without esophagitis K21.9 Esophagitis presence: without esophagitis Coronary artery disease involving [place] coronary artery of [place] heart without angina pectoris I25.10 Associated angina: without angina Coronary Disease-Associated Artery/Lesion type: [place] artery [place] vs. transplanted heart: [place] heart Stage 3 chronic kidney disease, unspecified whether stage 3a or 3b CKD N18.30 Chronic kidney disease stage 3 subtype: unspecified whether 3a or 3b
[2024-03-23 15:18] VITALS: BP 128/80; PULSE 90; O2SAT 6; BMI 29.9
== END 2024-03-23 15:41 | disposition home or self-care (01) ==
PROVIDERS: PCP Physician Assistant; Visit Provider Physician Assistant
DX: I12.9 Hypertensive chronic kidney disease with stage 1 through stage 4 chronic kidney disease, or unspecified chronic kidney disease (principal); E11.42 Type 2 diabetes mellitus with diabetic polyneuropathy; Z79.4 Long term (current) use of insulin; N18.30 Chronic kidney disease, stage 3 unspecified; K21.9 Gastro-esophageal reflux disease without esophagitis; I25.10 Atherosclerotic heart disease of native coronary artery without angina pectoris

== ENCOUNTER → 2024-03-23 15:00 | Outpatient (BNVA) | payer OTHER, SELFPAY | PROVIDERS: PCP Physician Assistant; Visit Provider Physician Assistant | DX: E11.42 Type 2 diabetes mellitus with diabetic polyneuropathy (principal); I10 Essential (primary) hypertension; K21.9 Gastro-esophageal reflux disease without esophagitis; I25.10 Atherosclerotic heart disease of native coronary artery without angina pectoris; N18.30 Chronic kidney disease, stage 3 unspecified; Z79.4 Long term (current) use of insulin | CPT/HCPCS: 83036; 99212 ==